=== PATIENT | female | born 1975 | race Caucasian/White ===

== ENCOUNTER 2024-09-06 10:57 | Inpatient (IN) ==
--- NOTE | 2024-08-08 11:10 | PAT Medication Instructions ---
Medication Instructions Date of Service August 08, 2024 Home Medications Dim Supplement Complex 350 mg PO QAM Joint Health Supplement 3 tab PO QAM ascorbic acid (vitamin C) 500 mg tablet (Vitamin C) 500 mg PO QAM biotin 10,000 mcg capsule 10,000 mcg PO QAM calcium 500 mg tablet 500 mg PO QAM cholecalciferol (vitamin D3) 50 mcg (2,000 unit) capsule (Vitamin D3) 50 mcg PO QAM magnesium 1 tab PO QAM methocarbamol 750 mg tablet 750 mg PO Q6H PRN omega 2-edr-lsp-fish oil 1,200 mg (144 mg-216 mg) capsule (Fish Oil) 1 cap PO QAM turmeric 500 mg-black pepper extract 3 mg capsule 1 cap PO QAM vitamin B complex 1 cap PO QAM STOP taking 2 weeks before surgery (or as soon as possible if surgery is within 2 weeks) Dim Supplement Complex 350 mg PO QAM Joint Health Supplement 3 tab PO QAM biotin 10,000 mcg capsule 10,000 mcg PO QAM omega 0-nrr-lhm-fish oil 1,200 mg (144 mg-216 mg) capsule (Fish Oil) 1 cap PO QAM turmeric 500 mg-black pepper extract 3 mg capsule 1 cap PO QAM DO NOT take the morning of surgery ascorbic acid (vitamin C) 500 mg tablet (Vitamin C) 500 mg PO QAM calcium 500 mg tablet 500 mg PO QAM cholecalciferol (vitamin D3) 50 mcg (2,000 unit) capsule (Vitamin D3) 50 mcg PO QAM magnesium 1 tab PO QAM vitamin B complex 1 cap PO QAM Take morning of surgery With a small sip of water, OTHERWISE NOTHING TO EAT OR DRINK AFTER MIDNIGHT: methocarbamol 750 mg tablet 750 mg PO Q6H PRN(if needed) Take evening before surgery methocarbamol 750 mg tablet 750 mg PO Q6H PRN(if needed) Other Notes If you have any questions please call us at [phone] or [phone] or or [phone]
--- NOTE | 2024-08-15 09:45 | Anesthesiology Consultation ---
Date of Service August 15, 2024 Assessment & Plan (1) Encounter for pre-operative examination: Plan - awaiting surgeon ordered medical clearance (Rodney Ruvalcaba), otherwise acceptable to proceed. - check urine test STAT am DOS. Chart Review Chart Review: Pending: Refer to Additional Notes / Consult section and Patient seen in Pre Admission Testing Teaching & Discussion Pre-Anesthesia Teaching/Discussion Notes: Instructed NPO after midnight before surgery, except medications with 15 cc of water. Medication instructions provided according to the PAT guidelines. History Surgery Operation Date: 09/06/24 11:05 Proposed Procedures p L5-S1 Decompression and Fusion - Donaldo Rondon DO Height/Weight Height: 5 ft 5 in Weight: 68.2 kg Allergies Allergy/AdvReac Type Severity Reaction Status Date / Time bee venom protein (honey bee) Allergy Severe Anaphylaxis Verified 08/05/24 15:36 nickel Allergy Intermediate Redness of Verified 08/05/24 15:36 Skin/Swelling Medications Home Medications Medication Instructions Recorded Confirmed Last Taken Dim Supplement Complex 350 mg PO QAM 08/05/24 08/05/24 Unknown Joint Health Supplement 3 tab PO QAM 08/05/24 08/05/24 Unknown ascorbic acid (vitamin C) 500 mg 500 mg PO QAM 08/05/24 08/05/24 Unknown tablet (Vitamin C) biotin 10,000 mcg capsule 10,000 mcg PO QAM 08/05/24 08/05/24 Unknown calcium 500 mg tablet 500 mg PO QAM 08/05/24 08/05/24 Unknown cholecalciferol (vitamin D3) 50 50 mcg PO QAM 08/05/24 08/05/24 Unknown mcg (2,000 unit) capsule (Vitamin D3) magnesium 1 tab PO QAM 08/05/24 08/05/24 Unknown methocarbamol 750 mg tablet 750 mg PO Q6H PRN Muscle Spasms 08/05/24 08/05/24 Unknown omega 3-mbd-okk-fish oil 1,200 mg 1 cap PO QAM 08/05/24 08/05/24 Unknown (144 mg-216 mg) capsule (Fish Oil) turmeric 500 mg-black pepper 1 cap PO QAM 08/05/24 08/05/24 Unknown extract 3 mg capsule vitamin B complex 1 cap PO QAM 08/05/24 08/05/24 Unknown Past Medical History Medical History (Updated 08/15/24 @ 10:01 by Shelly Nation PA-C) 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 Exercise / Class Metabolic Activity II 4-5 Yardwork/Stairs/Walk up hill (denies chest discomfort or shortness of breath with one flight of stairs) Past Surgical History Surgical History History of endometrial ablation Hx of section Hx of colonoscopy Hx of rhinoplasty with turbinectomy/deviated septum as per patient Hx of tonsillectomy Past Anesthesia History No Family Hx of Anesthesia Complications and Other (slow to wake) History of PONV No Hx of PONV and Hx of Motion Sickness Social History Smoking Status: Former smoker Do You Dip or Chew Tobacco: Yes (Nicotine Pouch and gum- advised) Smoking End Date: 2000 Hx Alcohol Use: No Hx Substance Use: Yes substance use type: marijuana Last Used Substance: Unknown Last Used Substance Other:: advised Review of Systems Snoring, denies witnessed apneas. Patient denies chest pain, shortness of breath, dyspnea on exertion, reflux, fever, chills, cough, wheezing, or palpitations. Physical Exam Vital Signs Vitals BP 129/85 P 74 TEMP 98.1 SP02 100% on RA RESP 18 Physical Patient resting comfortably in chair in no acute distress, alert and oriented, responding appropriately throughout visit Full cervical extension range of motion without pain TMD 3.5 finger breadths Mallampati Score 2 Dentition: intact, denies chipped or loose teeth, caps/crowns, implants or bridges Lungs: normal respiratory effort. Good air movement, clear throughout to auscultation, no adventitious breath sounds Cardiac: regular rate and rhythm, no murmurs noted Carotid arteries: negative bruit bilat Lab Results Anesthesia Preop Results Results Anesthesia Widget: WBC 5.01 K/ul (4.8-10.8) 08/15/24 Hgb 13.3 g/dl (12.0-16.0) 08/15/24 Hct 39.5 % (37.0-47.0) 08/15/24 Plt 254 K/uL (130-400) 08/15/24 Na 140 mmol/L (136-145) 08/15/24 K 4.0 mmol/L (3.5-5.1) 08/15/24 Cl 107 mmol/L (98-107) 08/15/24 CO2 28 mmol/L (21-32) 08/15/24 BUN 10 mg/dl (6-23) 08/15/24 Creat 0.55 mg/dl (0.6-1.2) L 08/15/24 Glucose Level 103 mg/dl (70-99(Fasting)) H 08/15/24 PT 10.3 Seconds (9.0-12.0) 08/15/24 PTT 27 Seconds (21-31) 08/15/24 INR 0.9 (0.9-1.1) 08/15/24 Urine Color Yellow 08/15/24 Urine Appearance Clear (Clear) 08/15/24 Urine pH 7.5 (4.5-7.5) 08/15/24 Urine Specific Walker 1.008 (1.000-1.030) 08/15/24 Urine Protein Negative (Negative) 08/15/24 Urine Glucose (UA) Negative (Negative) 08/15/24 Urine Ketones Negative (Negative) 08/15/24 Urine Blood Negative (Negative) 08/15/24 Urine Nitrite Negative (Negative) 08/15/24 Urine Bilirubin Negative (Negative) 08/15/24 Urine Urobilinogen Negative (Negative) 08/15/24 Urine Leukocyte Esterase Negative (Negative) 08/15/24 Blood Type O Positive 08/15/24 Antibody Screen NEGATIVE 08/15/24 Testing Electrocardiogram Date: 08/15/24 NSR, rate 75 bpm Chest X-Ray Date: 08/15/24 No evidence of acute cardiopulmonary disease, communicable disease or tuberculosis.
[2024-09-06] MEDS: CeleBREX 200 MG CAP PO SCH (11:24)
[2024-09-06] MEDS: ACETAMINOPHEN 500 MG TAB PO SCH (11:24)
[2024-09-06] MEDS: GABAPENTIN 900 MG DOSE PO SCH (11:24)
[2024-09-06] MEDS: LR 15ML/HR IV SCH (11:25)
[2024-09-06] MEDS: LR 60ML/HR IV SCH (11:25)
[2024-09-06] MEDS ORDERED: ROCURONIUM BROMIDE 10 MG/ML 5 ML VIAL IV ONE ×2 (11:48→13:16)
[2024-09-06] MEDS ORDERED: PROPOFOL IV EMULSION 10 MG/ML 20 ML VIAL IV ONE (11:48)
[2024-09-06] MEDS ORDERED: MIDAZOLAM HCL 1 MG/ML 2ML VIAL ONE (11:48)
[2024-09-06] MEDS ORDERED: GLYCOPYRROLATE 0.2 MG/ML VIAL ONE (11:48)
[2024-09-06] MEDS ORDERED: ONDANSETRON INJ 2 MG/ML 2 ML VIAL ONE (11:48)
[2024-09-06] MEDS ORDERED: DEXAMETHASONE SOD INJ 4 MG/ML VIAL ONE (11:48)
[2024-09-06] MEDS ORDERED: LIDOCAINE 2% 2 ML VIAL/AMP(20MG/ML) INFIL ONE (11:48)
[2024-09-06] MEDS ORDERED: fentaNYL citrate PF 100 MCG/2 ML VIAL ONE ×2 (11:48→13:36)
[2024-09-06] MEDS ORDERED: SUGAMMADEX SODIUM 200 MG/2 ML VIAL IV ONE (11:52)
[2024-09-06] MEDS ORDERED: ONDANSETRON INJ 2 MG/ML 2 ML VIAL IV PRN ×2 (12:11→15:57)
[2024-09-06] MEDS ORDERED: PROMETHAZINE HCL 6.25 MG in SODIUM CHLORIDE 0.9% 50 ML IV PRN (12:11)
[2024-09-06] MEDS ORDERED: ATROPINE SULFATE 0.1 MG/ML 10ML SYR IV PRN (12:11)
--- NOTE | 2024-09-06 12:26 | History & Physical Bridge Note ---
Date of Service September 06, 2024 History & Physical Bridge Note I have examined the patient, reviewed the History & Physical and in the interval since the performance of the History & Physical I have noted the following changes of clinical significance: no changes noted
--- NOTE | 2024-09-06 12:28 | History & Physical Report ---
Date of Service September 06, 2024 Assessment & Plan (1) Neurogenic claudication due to lumbar spinal stenosis: Plan: L5-S1 decompression and fusion History of Present Illness Chief Complaint: Back and leg pain Primary Care Provider: Rodney Ruvalcaba This is a 48-year-old female presents with chronic persistent back and leg pain after failing course of nonoperative care she is here for surgical invention. Allergies Allergy/AdvReac Type Severity Reaction Status Date / Time bee venom protein (honey bee) Allergy Severe Anaphylaxis Verified 09/06/24 11:11 nickel Allergy Intermediate Redness of Verified 09/06/24 11:11 Skin/Swelling Home Medications Medication Instructions Recorded Confirmed Type Dim Supplement Complex 350 mg PO QAM 08/05/24 09/06/24 History Joint Health Supplement 3 tab PO QAM 08/05/24 09/06/24 History ascorbic acid (vitamin C) 500 mg 500 mg PO QAM 08/05/24 09/06/24 History tablet (Vitamin C) biotin 10,000 mcg capsule 10,000 mcg PO QAM 08/05/24 09/06/24 History calcium 500 mg tablet 500 mg PO QAM 08/05/24 09/06/24 History cholecalciferol (vitamin D3) 50 50 mcg PO QAM 08/05/24 09/06/24 History mcg (2,000 unit) capsule (Vitamin D3) magnesium 1 tab PO QAM 08/05/24 09/06/24 History methocarbamol 750 mg tablet 750 mg PO Q6H PRN Muscle Spasms 08/05/24 09/06/24 History omega 2-nku-fws-fish oil 1,200 mg 1 cap PO QAM 08/05/24 09/06/24 History (144 mg-216 mg) capsule (Fish Oil) turmeric 500 mg-black pepper 1 cap PO QAM 08/05/24 09/06/24 History extract 3 mg capsule vitamin B complex 1 cap PO QAM 08/05/24 09/06/24 History Past Med/Surg History Problem List (Updated 09/06/24 @ 12:27 by Donaldo Rondon DO) Neurogenic claudication due to lumbar spinal stenosis Encounter for pre-operative examination Medical History (Updated 09/06/24 @ 12:27 by Donaldo Rondon DO) Lumbar radiculopathy Hx of colonic polyps at age 18 History of stomach ulcers no problems in the last 5 years ago 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 as per patient Hx of Lyme disease x3 (most recently 2020) - completed antibiotic each time Surgical History History of endometrial ablation Hx of colonoscopy Hx of section Hx of tonsillectomy Hx of rhinoplasty with turbinectomy/deviated septum as per patient Social History Smoking Status: Former smoker Tobacco Type: Cigarettes and Smokeless Tobacco (Dip or Chew) Smoking End Date: 2000; Second Hand Exposure: No; Do You Dip or Chew Tobacco: Yes (Nicotine Pouch and gum- advised); Tobacco Cessation Education Requested by Patient: No Hx Alcohol Use: No Hx Substance Use: Yes Last Used Substance: Unknown Last Used Substance Other:: advised Preferred Language: Setswana Communication Ability: Effective Section Hand Required: No Beliefs That Will Affect Care: None Current Living Situation: Spouse Other Information That Helps Us Care for You: No Feels Safe at Home: Yes Safety Concerns: Feels Safe At This Time Assistive Devices: None Physical Exam Physical Exam: Patient is alert and oriented Heart regular rhythm Lungs clear Results & Data Results & Data Vital Signs (Past 12 Hours) Vital Signs Temp Pulse Resp BP Pulse Ox O2 Del Method 09/06/24 11:28 36.9 C 72 16 123/87 100 Room Air
[2024-09-06] MEDS: ceFAZolin 2000MG 2,000 MG/15 ML SYR IV SCH (12:47)
[2024-09-06] MEDS: BUPIVACAINE/EPINEPHRINE 0.25% 1:200,000 30 ML VIAL ONE (14:22)
[2024-09-06] MEDS: ceFAZolin 330 MG/ML 1 GM VIAL ONE (14:23)
[2024-09-06] MEDS: FLOSEAL HEMOSTATIC MATRIX 10ML TOP ONE (14:24)
--- NOTE | 2024-09-06 14:33 | Operative Report ---
Post Operative Report Pre & Post Diagnosis Operation Date: 09/06/24 12:25 Pre-Op Diagnosis: Lumbar Radiculopathy, Neuroforaminal Stenosis of Lumbar Post-Op Diagnosis: Lumbar Radiculopathy, Neuroforaminal Stenosis of Lumbar I identified the patient and participated in the time-out.: Yes Procedure Operation Date: 09/06/24 12:25 Actual Procedures #1 lumbar decompression with bilateral medial facetectomies and foraminotomies L5-S1. #2 posterior spinal fusion L5-S1. #3 placement posterior instrumentation L5-S1. #4 interbody fusion L5-S1. #5 history of Spira 11 x 26 mm x 2 at L5-S1. #6 placement locally harvested morselized autograft in the posterior gutters per #7 placement infuse collagen sponge, with Koros in the posterior lateral gutters and os design interbody space. #8 application of versa wrap over the exposed dura. Surgeon Donaldo Rondon, DO [employer] Chayo Castillo Estimated Blood Loss 100 Findings Consistent with Post-Op Diagnosis Specimens None Indications This is a 48-year-old female presents publish diagnosis of failing course of nonoperative care is here for surgical invention. Description of Procedure Patient was met with identified informed consent obtained. Patient was then taken to the operative suite underwent intubation placed in a prone position on the José table on top of the Kayode frame. All bony promises well-padded eyes inspected to ensure no external pressure placed upon them. This point the lumbar spine was prepped and draped in a sterile fashion. Sharp dissection with assistance of Bovie cautery performed down to and exposing the lamina transverse processes of L5 and sacral ala bilaterally. From caudal to cephalad fashion complete laminectomy of L5 was performed including bilateral medial facetectomies and foraminotomies addressing severe lateral recess and foraminal stenosis. Pedicle screws were then placed in L5 and S1 levels bilaterally with assistance of fluoroscopy and appropriate size ulises placed. By way of a transforaminal approach on the left a discectomy of L5-S1 was performed en dplates corrected to subcortical bleeding bone and 11 x 26 mm spiral cage filled with os design bone graft tapped in position. Then proceeded to the right transforaminal region. Discectomy performed endplates guarded to subcortical bleeding bone and a second 11 x 26 mm spiral cage filled with os design bone graft tapped into position. The rods were then locked in final position bilaterally. The transverse processes of L5 and the sacral ala burred to subcortical bleeding bone. Infuse collagen sponge combined with Koros and locally harvested morselized autograft placed in posterior gutters. Versa wrap placed over the exposed dura. 15 round CHAR drain inserted. The incision was then closed with 1 Vicryl in the fascia 2-0 Vicryl subcutaneously and 4 Monocryl for final skin closure. Steri-Strips sterile dressing placed. Patient waken taken to PACU stable condition. Please note spinal cord monitoring was utilized out the procedure no changes noted. Chayo Castillo was present at the entire surgery involved the patient positioning complex portion of the surgery and final skin closure. Im ordering 20 grams of Triple [place] Collagen Powder (go2 media [id number]) to treat an incision wound that was caused by a spine procedure. The incision is approximately 2 cm(W) x 4 cm(L) into the joint (D) in size and is a full thickness wound. Triple [place] collagen comes in 1 gram packets so 20 packets were ordered. Given the size of the wound, with light to moderate exudate I chose to order a 20 day supply. The patient will be provided instructions for proper application of the collagen wound kit. The patient will be asked to apply the collagen powder daily and then cover it with sterile dressings dispensed. Collagen was selected as I expect the collagen to attract monocytes and fibroblasts, act as a sacrificial substrate for MMPs, and ultimately proved a matrix for tissue and vessel growth. The collagen will act as a primary dressing in this scenario. It is medically necessary for proper healing of these wounds to improve bioavailability and contact with each wound surface, this is also to help prevent infection of wounds and promote healing ultimately leading to a better healing outcome and limit the risk of infection. I attest to the content of the Intraoperative Record and any orders documented therein. Any exceptions are noted below.
[2024-09-06] MEDS: HYDROmorphone INJ 1 MG/ML SYRINGE IV PRN (14:56)
--- NOTE | 2024-09-06 15:34 | Anesthesiology Progress Note ---
Date of Service September 06, 2024 Anesthesia Post Procedure Vital Signs Vital Signs: Temp Pulse Resp BP Pulse Ox O2 Del Method O2 Flow Rate 09/06/24 15:25 63 8 L 145/99 H 100 Room Air 09/06/24 15:15 36.5 C 65 12 145/92 H 100 Room Air 09/06/24 15:05 56 L 8 L 113/76 100 Room Air 09/06/24 14:55 64 15 165/95 H 99 Room Air 09/06/24 14:46 36.0 C L 56 L 11 L 133/88 99 Oxymask 15 09/06/24 11:28 36.9 C 72 16 123/87 100 Room Air Pain Intensity Lower Back: Pain Intensity: 4 Transfer of Care Handoff Completed per policy Notes Mental Status: alert / awake / arousable Patient Amnestic to Procedure: Yes Nausea / Vomiting: adequately controlled Pain: adequately controlled Airway Patency, RR, SpO2: stable & adequate BP & HR: stable & adequate Hydration State: stable & adequate Anesthetic Complications: no major complications apparent
[2024-09-06] MEDS ORDERED: diphenhydrAMINE Capsule 25 MG CAP PO PRN (15:57)
[2024-09-06] MEDS ORDERED: DO NOT ADMINISTER PNEUMOCOCCAL VACCINE PRN (15:57)
[2024-09-06] MEDS ORDERED: NALOXONE HCL 0.4 MG/1 ML VIAL/CARP IV PRN (15:57)
[2024-09-06] MEDS ORDERED: HYDROmorphone INJ 0.5 MG/0.5 ML SYR IV PRN (15:57)
[2024-09-06] MEDS ORDERED: DO NOT ADMINISTER FLU VACCINE PRN (15:57)
[2024-09-06] MEDS ORDERED: LORazepam 0.5 MG TAB PO PRN (15:57)
[2024-09-06] MEDS ORDERED: ACETAMINOPHEN 500 MG TAB PO PRN (15:57)
[2024-09-06] MEDS ORDERED: PROMETHAZINE 12.5 MG/50.5 ML BAG IV PRN (15:57)
[2024-09-06] MEDS ORDERED: bisacodyL 10 MG SUPP PR PRN (15:57)
[2024-09-06] MEDS ORDERED: HYDROmorphone INJ 1 MG/ML SYRINGE IV PRN (15:57)
[2024-09-06] MEDS ORDERED: hydrOXYzine HCl 25 MG TAB PO PRN (15:57)
[2024-09-06] MEDS ORDERED: ACETAMINOPHEN 1,000 MG/100 ML VIAL IV PRN (15:57)
[2024-09-06] MEDS ORDERED: SOD PHOSPHATE/SOD BIPHOSPHATE ENEMA 132 ML BTL PR PRN (15:57)
[2024-09-06] MEDS ORDERED: ONDANSETRON 4 MG OD TAB PO PRN (15:57)
[2024-09-06] MEDS ORDERED: MAGNESIUM HYDROXIDE SUSP 30 ML UDC PO PRN (15:57)
[2024-09-06] MEDS ORDERED: METOCLOPRAMIDE HCL INJ 5 MG/ML 2 ML VIAL IV PRN (15:57)
[2024-09-06] MEDS ORDERED: FAMOTIDINE 20 MG TAB PO PRN (15:57)
[2024-09-06] MEDS ORDERED: ALUMINUM/MAGNESIUM SUSP 30 ML UDC PO PRN (15:57)
--- NOTE | 2024-09-06 16:32 | Fluoroscopy Report ---
FL lumbar spine 2-3V CLINICAL HISTORY: L5-S1 DECOMP AND FUSION COMPARISON STUDY: None. FLUOROSCOPY TIME: 35 seconds. Ka,r: 18.45 mGy FLUOROSCOPIC IMAGES: 2 FINDINGS: Fluoroscopy was provided during L5-S1 decompression and fusion with discectomy. IMPRESSION: Fluoroscopy provided L5-S1 decompression and fusion. ACT 112: Negative or not required by law. Electronically signed by: Milad Caraballo M.D. 09/06/2024 4:30 PM
[2024-09-06] MEDS: ceFAZolin 1000MG 1,000 MG/7.5 ML SYR IV SCH (17:58)
[2024-09-06] MEDS: KETOROLAC 30 MG/ML VIAL IV SCH (17:58)
[2024-09-06] MEDS: DOCUSATE SODIUM/SENNA 50/8.6MG TAB PO SCH (20:45)
[2024-09-06] MEDS: oxyCODONE HCL IR 5 MG TAB (IMMEDIATE RELEASE) PO PRN (22:20)
[2024-09-07] MEDS: POLYETHYLENE (MIRALAX) 17 GM PACK PO SCH (05:22)
[2024-09-07 06:27] LABS: Basophils # (auto) 0.03 K/uL (0.00-0.20); Basophils % (auto) 0.3 %; Eosinophils # (auto) 0.07 K/uL (0.00-0.50); Eosinophils % (auto) 0.7 %; Hemoglobin 11.4 g/dl (12.0-16.0); Immature Granulocytes # (auto) 0.02 K/uL (0.01-0.20); Immature Granulocytes % (auto) 0.2 %; Lymphocytes # (auto) 3.51 K/uL (1.20-3.40); Lymphocytes % (auto) 35.2 %; Mean Corpuscular Hemoglobin 30.8 pg (25.0-34.0); Mean Corpuscular Hgb Conc 33.5 g/dL (32.0-36.0); Mean Corpuscular Volume 91.9 fL (80.0-100.0); Monocytes # (auto) 0.81 K/uL (0.11-0.59); Monocytes % (auto) 8.1 %; Neutrophils # (auto) 5.54 K/uL (1.40-6.50); Neutrophils % (auto) 55.5 %; Platelet Count 240 K/uL (130-400); RDW Coefficient of Variation 11.9 % (11.5-14.5); RDW Standard Deviation 40.4 fL (36.4-46.3); White Blood Count 9.98 K/ul (4.8-10.8)
[2024-09-07 06:41] LABS: BUN Creatinine Ratio 19.4 (10-20); Calcium 8.8 mg/dl (8.6-10.3); Creatinine Clr Calc Pharmacy 98.8 ml/min; Potassium 3.9 mmol/L (3.5-5.1)
[2024-09-07] MEDS: ASCORBIC ACID 500 MG TAB PO SCH (08:18)
[2024-09-07] MEDS: VITAMIN B COMPLEX TAB PO SCH (08:18)
[2024-09-07] MEDS: CHOLECALCIFEROL 25 MCG (1000 UNITS) TAB PO SCH (08:18)
[2024-09-07] MEDS: CALCIUM CARBONATE 1250MG TAB PO SCH (08:18)
[2024-09-07] MEDS: dexAMETHasone 6 MG in SYRINGE 0 ML IV SCH (08:19)
[2024-09-07] MEDS ORDERED: NON-FORMULARY MEDICATION (Magnesium Tablet) PO SCH (09:00)
--- NOTE | 2024-09-07 11:52 | Orthopedic Progress Note ---
Date of Service September 07, 2024 Assessment & Plan (1) Neurogenic claudication due to lumbar spinal stenosis: Plan: At this time we will continue physical therapy monitor CHAR output hopefully discharge home in the next few days. Admission and Anticipated Discharge Date Admission Date: September 06, 2024 Subjective Back pain controlled leg pain improved Physical Exam Physical Exam: Patient is in the chair at the bedside. She is comfortable. Distracted testing. Results & Data Vital Signs (Past 12 Hours) Vital Signs Temp Pulse Resp BP BP Pulse Ox O2 Del Method 09/07/24 07:11 36.8 C 67 16 102/61 97 Room Air 09/07/24 04:15 36.7 C 64 16 108/69 99 Room Air
[2024-09-07] MEDS: NICOTINE 14 MG/24 HR PATCH TD SCH (14:47)
[2024-09-07] MEDS: METHOCARBAMOL 750 MG TABLET PO PRN (18:36)
[2024-09-07] MEDS: LORazepam 2 MG/1 ML VIAL IV PRN (23:51)
[2024-09-08] MEDS: traMADol HCL 50 MG TABLET PO PRN (06:22)
[2024-09-08 07:34] VITALS: BP 112/76; PULSE 76; RESP 16; TEMP 98.6; O2SAT 98
--- NOTE | 2024-09-08 10:07 | Discharge Summary ---
Date of Service September 08, 2024 Admission HPI Per Admitting Provider This is a 48-year-old female presents with chronic persistent back and leg pain after failing course of nonoperative care she is here for surgical invention. Principal Diagnosis Lumbar spinal stenosis with radiculopathy Discharge Data Allergies Allergy/AdvReac Type Severity Reaction Status Date / Time bee venom protein (honey bee) Allergy Severe Anaphylaxis Verified 09/06/24 11:11 nickel Allergy Intermediate Redness of Verified 09/06/24 11:11 Skin/Swelling Procedures Performed Operation Date: 09/06/24 12:25 Actual Procedures p L5-S1 Decompression and Fusion, Spinal Cord Monitoring(Not Applicable) - Donaldo Rondon DO Ordered Studies 09/06/24 12:25 FL lumbar spine 2-3V Routine Hospital Course (1) Neurogenic claudication due to lumbar spinal stenosis: Patient underwent lumbar decompression fusion tolerated this well was taken to orthopedic for postoperative. Post ablation progressed appropriately. Pain well-controlled. Excellent strength testing. CHAR drain decreasing. Subsidy discharged home. Discharge orders instructions from the chart for further review. Total Time Total Time Spent Total Time Spent (In Minutes): 20 minutes Discharge Plan Discharge Items Patient Disposition: Home - Self-Care Reason For Visit: Lumbar Radiculopathy, Neuroforaminal Stenosis of L Discharge Diagnosis: Lumbar spinal stenosis with radiculopathy Activity: As commented below Non-emergency contact: Primary Care Provider Call non-emergency contact if: you have any medication questions Follow-up/Referrals: Rodney Ruvalcaba PA-C [Primary Care Provider] - Diet: Regular Addtl Attending Provider Instructions: ACTIVITY RECOMMENDATIONS: SELF CARE INSTRUCTIONS AFTER THORACIC/LUMBAR FUSIONS 1. You may walk to your tolerance. It is good exercise for your legs and back. Expect some back and intermittent leg aches and pains. 2. You may perform "counter-top" level activities (make a sandwich, jeanie with a project, etc.). 3. No bending or lifting of more than 10 pounds or back twisting of any nature (roll like a log when turning in bed). 4. You may ride in a car for 20-30 minutes at a time. No driving until after your first visit with your doctor. 5. Frequent changes of position and restricting sitting to 30 minutes at a time will help limit the amount of back spasms and stiffness you may experience. 6. You may discontinue the use of ambulatory aids (cane, crutches, etc.) once your strength and confidence allow. 7. You may food stand manager the shower and let water strike your incision when you arrive home at least once daily. Do not take a tub bath, sit in a hot tub or go into a swimming pool until after your first recheck in the office. 8. You may resume previous diet. SPECIAL CARE INSTRUCTIONS: VERY IMPORTANT TO READ AND REVIEW A. Your surgical incision has been closed with a cosmetic suture under the skin that will dissolve in about 6 weeks. In 14 days, you can use a pair of clean scissors and cut the suture that is left outside of the skin at the ends of your incision. 1. The small skin tapes can be removed 7 days after surgery if they have not fallen off by that point. 2. You may keep the wound open to air as much as possible to promote healing after post-op day number 5 unless told otherwise by your doctor. 3. If you think the wound looks like it is becoming infected (redness or worsening drainage) and/or you are experiencing fever, chill or worsening back pain and muscle spasms, contact the office so that we may evaluate you as soon as possible. B. Complications are uncommon, but please contact us if you have any signs or symptoms of: 1. wound infection (fever higher than 102.5 degrees F, redness, separation of wound, drainage, or increasing pain from the incision) 2. blood clots in legs (pain, swelling, redness and warmth in legs) 3. urinary tract infection (fever higher than 102.5 degrees F, burning upon urination or increased frequency of urination) 4. nerve problems (inability to walk on your toes or heels, numbness, loss of bowel or bladder control) 5. any other symptoms that concern you C. Please call the office at if you have any concerns or questions about your operation or recovery. D. No smoking! Smoking drastically decreases the chance of a solid fusion. E. Do not take any anti-inflammatory medications (Indocin, Advil, Motrin, Aspirin, Naprosyn, etc.) as these may inhibit the chance of a solid fusion. Tylenol is okay to take for pain. MANAGING PAIN AFTER SPINAL SURGERY 1. Narcotic medication is intended for short-term use and will be provided for surgical pain. Surgical pain usually lasts for a period of 4-6 weeks. Narcotic medication includes Percocet, Vicodin, Darvocet, Tylenol #3 or Lortab. 2. Longer-term pain is more appropriately treated with non-narcotic medication such as Tylenol ES. 3. Muscle spasm is not appropriately treated with narcotics. Muscle relaxers such as Soma, Flexeril or Skelaxin can be used along with Tylenol ES. 4. Remember that we all live with some "aches and pains". This is not unusual or uncommon after an injury or as we get older. a. Back pain is expected and may include muscle spasms for 4 to 6 weeks after surgery. The pain should gradually improve. If the pain worsens for no apparent reason, please contact the office. b. Intermittent leg pain may also be experienced and should not be concerned about unless it worsens for no apparent reason. If so, please contact the office. 5. We will provide appropriate medication within the normal guidelines of their prescribed use. We will also be very cautious and aware of potential abuse and extended duration of patients' medication needs. a. Pain medications are for your comfort and to assist with sleep and rest so that the tissue can heal. They are not provided in order to return to normal activity and should not be used through the day. To do so or worsening pain at night can result from ongoing tissue damage and development of tolerance to the prescribed medicine. 6. Please allow 2-3 days to process refills. Prescriptions will not be mailed but must be picked up at the office. FOLLOW UP VISIT: Keep your scheduled follow-up appointment. Any questions, please call the office at . Pending Studies at Discharge: No Stand-Alone Forms: My [facility] [employer]book, Smoking Cessation Medications and DC Order Prescriptions: New tramadol 50 mg tablet 50 mg PO Q6H PRN (Reason: pain, moderate) Qty: 30 0RF oxycodone 5 mg tablet 5 mg PO Q6H PRN (Reason: pain) Qty: 30 0RF Continued calcium 500 mg Tablet 500 mg PO QAM methocarbamol 750 mg Tablet 750 mg PO Q6H PRN (Reason: Muscle Spasms) ascorbic acid (vitamin C) [Vitamin C] 500 mg Tablet 500 mg PO QAM biotin 10,000 mcg Capsule 10,000 mcg PO QAM vitamin B complex Capsule 1 cap PO QAM magnesium Tablet 1 tab PO QAM cholecalciferol (vitamin D3) [Vitamin D3] 50 mcg (2,000 unit) Capsule 50 mcg PO QAM omega 6-[id number]-wsw-fish oil [Fish Oil] 1,200 (144-216) mg Capsule 1 cap PO QAM turmeric-turmeric ext-pepper 500-3 mg Capsule 1 cap PO QAM Dim Supplement Complex 350 mg PO QAM Joint Health Supplement 3 tab PO QAM Discharge Orders: Discharge Order (Routine); Ordered 09/08/24 Ordered By: Donaldo Rondon Admission Data Admit Date/Time: 09/06/24 14:36 Attending Provider: Donaldo Rondon Admit Provider: Donaldo Rondon Primary Care Provider: Rodney Ruvalcaba
== END 2024-09-08 10:59 | disposition home or self-care (01) | DRG 402 ==
LOC: ASU 10:57 → 3E 14:36